=== PATIENT | male | born 1940 | race Caucasian/White ===

== ENCOUNTER 2020-03-07 06:55 | Day surgery (SDC) | payer MEDICARE, OTHER ==
[~2020-03-07 06:55] MED LIST: Midazolam 1 MG/ML 2 ML SDV ONE; fentaNYL 100 MCG/2 ML SDV ONE
[2020-03-07] MEDS ORDERED: Midazolam 1 MG/ML 2 ML SDV IV ONE ×3 (06:56→07:48)
[2020-03-07] MEDS ORDERED: fentaNYL 100 MCG/2 ML SDV IV ONE ×3 (06:56→07:47)
[2020-03-07] MEDS ORDERED: Dextrose 5%-0.45% NaCl 1,000 ML IV SCH (07:00)
--- NOTE | 2020-03-07 13:40 | OR ---
DATE: 03/07/2020 PROCEDURES: Total colonoscopy and multiple pinch biopsies. INSTRUMENT USED: PCF-H190DL Olympus video colonoscope. PREMEDICATIONS: Fentanyl 100 mcg intravenous, Versed 2 mg intravenous, nasal O2 cannula. The procedure was done under pulse oximetry, BP recording, and desk monitor. INDICATION: The patient with chronic diarrhea, unexplained, and not responsive to medical measures. Colonoscopic examination is done for detection of any polypoid lesions and removal, biopsies to be obtained for microscopic colitis, endoscopic hemostasis therapy if needed. DESCRIPTION OF PROCEDURE: Initial rectal exam showed external hemorrhoidal tags. Rigid anoscopy showed small internal hemorrhoids without bleeding from them. The colonoscope was passed with ease up to the ileocecal area. Photographs were taken of the normal-appearing cecum, identified by appendiceal orifice and thin-lipped ileocecal valve that prevented further advancement of the instrument to visualize terminal ileum. No bleeding was noted from any of the visualized areas at the commencement of the examination. Bowel preparation was found to be adequate, [place] scale 3 in all the regions, total score 9. No stricture. No vascular ectasia. No large isolated ulcerations seen. No evidence of diffuse inflammatory bowel disease in the form of friability, contact bleeding, or ulcerations. No polyp or tumor mass identified. Probing the proximal sides of folds and flexures using adequate distention and clearing up the stool material, withdrawal of the scope was made. Multiple pinch biopsies were taken from the normal-appearing mucosa of the mid transverse colon, mid descending colon, and rectosigmoid, and sent for any histopathologic evidence of microscopic colitis. No bleeding was noted from any of the visualized areas at the completion of examination. IMPRESSION: External and internal hemorrhoids. The patient tolerated the procedure well. [facility] /[id number]
== END 2020-03-07 10:15 | disposition home or self-care (01) ==
LOC: DL.ENDO 06:55
PROVIDERS: ATTEND Internal Medicine Gastroenterology
DX: K63.0 Abscess of intestine (principal); K52.9 Noninfective gastroenteritis and colitis, unspecified; K64.4 Residual hemorrhoidal skin tags; K64.8 Other hemorrhoids; I12.9 Hypertensive chronic kidney disease with stage 1 through stage 4 chronic kidney disease, or unspecified chronic kidney disease; E78.5 Hyperlipidemia, unspecified; E03.9 Hypothyroidism, unspecified; G47.33 Obstructive sleep apnea (adult) (pediatric); N18.9 Chronic kidney disease, unspecified; E66.09 Other obesity due to excess calories; Z88.8 Allergy status to other drugs, medicaments and biological substances; Z79.899 Other long term (current) drug therapy; Z68.33 Body mass index [BMI] 33.0-33.9, adult
CPT/HCPCS: J2250; J3010; J7042